=== PATIENT | female | born 1955 | race African-American/Black ===

== ENCOUNTER 2019-10-11 12:39 | Emergency (ER) | payer SELFPAY ==
[~2019-10-11] VITALS: Ht 160 cm; Wt 60.8 kg
[2019-10-11 12:40] VITALS: BP 156/81
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
--- NOTE | 2019-10-11 13:51 | RAD ---
EXAM: Thoracic spine, 3 views. HISTORY: Pain. COMPARISON: None. FINDINGS: 3 views of the thoracic spine are obtained. There is no listhesis. The vertebral lea are normal in height. The disc spaces are preserved. IMPRESSION: No acute osseous finding. Electronically signed by: Odalys Villa MD (10/11/2019 1:48 PM) [place] [id number]
[2019-10-11] MEDS ORDERED: NAPR-683 PO (14:08)
[2019-10-11] MEDS ORDERED: CYCL10TA2 PO (14:08)
[2019-10-11] MEDS ORDERED: KETOROLAC 30 MG/ML VIAL. IVP ONE (14:15)
[2019-10-11] MEDS ORDERED: KETOROLAC 30 MG/ML VIAL. ONE (14:23)
== END 2019-10-11 14:30 | disposition home or self-care (01) ==
LOC: ER 12:39
DX: S29.012A Strain of muscle and tendon of back wall of thorax, initial encounter (principal); V49.9XXA Car occupant (driver) (passenger) injured in unspecified traffic accident, initial encounter; Y92.488 Other paved roadways as the place of occurrence of the external cause; Y93.89 Activity, other specified; Y99.8 Other external cause status
CPT/HCPCS: 72072; 96374; 99284; J1885